=== PATIENT | female | born 1955 | race Caucasian/White ===

== ENCOUNTER 2023-06-26 10:01 | Outpatient (OUT) | payer OTHER, SELFPAY ==
--- NOTE | 2023-06-26 | FL_ITS ---
The [address] [address] Patient Name: JOHN FISHER MRN: [id number] date: 1955 Sex: F Assigned Patient Location: [place] Current Patient Location: [place] Accession/Order Number: [id number] Exam Date: 06/26/2023 10:11 Report Date: 06/26/2023 11:11 At the request of: MIKI NGUYỄN Procedure: FL upper GI w air PROCEDURE: FL upper GI w air, FL cineradiography COMPARISON: None. HISTORY: Nausea and vomiting, unspecified vomiting type R11.2 TECHNIQUE: An air contrast upper gastrointestinal series was performed in the usual manner. Standard level fluoroscopic mode of operation utilized. FINDINGS: ESOPHAGUS:Normal. No visible obstruction, dilatation, reflux or hernia STOMACH: Normal. No obstruction, mass, or ulceration. Normal motility. DUODENUM:Normal. No ulceration or diverticulum. OTHER: Negative. FL/FL upper GI w air IMPRESSION: Normal examination. Electronically authenticated by: GREG CRUZ Date: 06/26/2023 11:11
--- NOTE | 2023-06-26 10:08 | FL_ITS ---
The [address] [address] Patient Name: JOHN FISHER MRN: [id number] date: 1955 Sex: F Assigned Patient Location: [place] Current Patient Location: [place] Accession/Order Number: [id number] Exam Date: 06/26/2023 10:11 Report Date: 06/26/2023 11:11 At the request of: MIKI NGUYỄN Procedure: FL cineradiography PROCEDURE: FL upper GI w air, FL cineradiography COMPARISON: None. HISTORY: Nausea and vomiting, unspecified vomiting type R11.2 TECHNIQUE: An air contrast upper gastrointestinal series was performed in the usual manner. Standard level fluoroscopic mode of operation utilized. FINDINGS: ESOPHAGUS:Normal. No visible obstruction, dilatation, reflux or hernia STOMACH: Normal. No obstruction, mass, or ulceration. Normal motility. DUODENUM:Normal. No ulceration or diverticulum. OTHER: Negative. FL/FL cineradiography IMPRESSION: Normal examination. Electronically authenticated by: GREG CRUZ Date: 06/26/2023 11:11
== END 2023-06-26 10:02 | disposition home or self-care (01) ==
LOC: FL 10:02
PROVIDERS: PCP Internal Medicine; Visit Provider Internal Medicine
DX: R11.2 Nausea with vomiting, unspecified (principal); E11.22 Type 2 diabetes mellitus with diabetic chronic kidney disease; N18.31 Chronic kidney disease, stage 3a; Z79.4 Long term (current) use of insulin
CPT/HCPCS: 74246; 76120